=== PATIENT | male | born 1995 | race Caucasian/White ===

== ENCOUNTER 2018-04-08 18:41 | Emergency (ER) | payer OTHER ==
[2018-04-08] MEDS ORDERED: CYCLOBENZAPRINE HCL 10 MG TABLET PO ONE (19:39)
[2018-04-08] MEDS ORDERED: NAPROXEN 250 MG TABLET PO ONE (19:39)
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
[2018-04-08] MEDS ORDERED: ONDANSETRON 4 MG TAB.RAPDIS PO ONE (20:11)
[2018-04-08 21:08] VITALS: BP 137/80
== END 2018-04-08 21:06 | disposition home or self-care (01) ==
LOC: ER 18:41
DX: S39.92XA Unspecified injury of lower back, initial encounter (principal); R11.0 Nausea; V43.52XA Car driver injured in collision with other type car in traffic accident, initial encounter; Y92.488 Other paved roadways as the place of occurrence of the external cause; F17.200 Nicotine dependence, unspecified, uncomplicated; F12.10 Cannabis abuse, uncomplicated; Z98.890 Other specified postprocedural states
CPT/HCPCS: 99283; 72110; 72070; S0119

== ENCOUNTER 2019-09-21 14:28 | Emergency (ER) | payer OTHER ==
[2019-09-21 14:37] VITALS: BP 135/88
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
[2019-09-21 15:35] LABS: APPEARANCE,URINE CLEAR; BILIRUBIN,URINE NEGATIVE (NEGATIVE); COLOR,URINE COLORLESS; GLUCOSE, URINE NEGATIVE (NEGATIVE); KETONES,URINE NEGATIVE (NEGATIVE); LEUKOCYTE ESTERASE,URINE NEGATIVE (NEGATIVE); NITRITE,URINE NEGATIVE (NEGATIVE); PROTEIN,URINE NEGATIVE (NEGATIVE); URINE SPECIFIC GRAVITY 1.003; UROBILINOGEN,URINE NEGATIVE mg/dL (<2.0)
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
[2019-09-21 15:50] LABS: ALBUMIN 5.1 g/dL (3.5-5.0); ALKALINE PHOSPHATASE 54 U/L (38-126); ANION GAP 10 (5-19); ASPARTATE AMINO TRANSFERASE 22 U/L (17-59); BILIRUBIN,DIRECT 0.2 mg/dL (0.0-0.4); BILIRUBIN,TOTAL 0.6 mg/dL (0.2-1.3); BLOOD UREA NITROGEN 9 mg/dL (7-20); CALCIUM 9.6 mg/dL (8.4-10.2); CARBON DIOXIDE 28 mmol/L (22-30); CHLORIDE 103 mmol/L (98-107); GLUCOSE 100 mg/dL (75-110); POTASSIUM 4.2 mmol/L (3.6-5.0); TOTAL PROTEIN 7.9 g/dL (6.3-8.2)
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
[2019-09-21 16:01] LABS: ABSOLUTE BASOPHILS # (AUTO) 0.1 10^3/uL (0.0-0.2); ABSOLUTE EOSINOPHILS # (AUTO) 0.1 10^3/uL (0.0-0.6); ABSOLUTE LYMPHOCYTES (AUTO) 1.5 10^3/uL (0.5-4.7); ABSOLUTE MONOCYTES (AUTO) 0.4 10^3/uL (0.1-1.4); ABSOLUTE NEUT (AUTO) 4.3 10^3/uL (1.7-8.2); BASOPHILS % (AUTO) 0.9 % (0-2); HEMATOCRIT 44.7 % (37.9-51.0); HEMOGLOBIN 15.4 g/dL (13.5-17.0); LYMPHOCYTES % (AUTO) 24.1 % (13-45); MEAN CORPUSCULAR HEMOGLOBIN 30.2 pg (27.0-33.4); MEAN CORPUSCULAR HGB CONC 34.3 g/dL (32.0-36.0); MEAN CORPUSCULAR VOLUME 88 fl (80-97); MONOCYTES % (AUTO) 5.9 % (3-13); PLATELET COUNT 160 10^3/uL (150-450); RED BLOOD COUNT 5.08 10^6/uL (4.35-5.55); RED CELL DISTRIBUTION WIDTH 13.7 % (11.5-14.0); SEGMENTED NEUTROPHILS % (AUTO) 68.1 % (42-78); TOTAL CELLS COUNTED % (AUTO) 100 %; WHITE BLOOD COUNT 6.3 10^3/uL (4.0-10.5)
[2019-09-21] MEDS ORDERED: IBUPROFEN 800 MG TABLET PO ONE (16:02)
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
[2019-09-21] MEDS ORDERED: NICOTINE 7 MG/24 HR PATCH.TD24 TD ONE (18:16)
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
--- NOTE | 2019-09-21 18:55 | RADIOLOGY REPORT (SQ) ---
EXAM DESCRIPTION: U/S ABDOMEN LIMITED W/O DOP; U/S RETROPERITON (RENAL/AORTA) COMPLETED DATE/TIME: 09/21/2019 6:17 pm REASON FOR STUDY: pain, LUQ,Trauma; FLANK PAIN LEFT > RIGHT, COMPARISON: None. TECHNIQUE: Dynamic and static grayscale images acquired of the left upper quadrant, kidneys and blad lauro and recorded on PACS. Additional selected color Doppler and spectral images recorded. LIMITATIONS: None. FINDINGS: RIGHT KIDNEY: The right kidney measures 10.6 cm in length. The echotexture of the parenc hyma is normal. The corticomedullary differentiation is preserved. There is no hydronephrosis, calc ification or mass. LEFT KIDNEY: The left kidney measures 10.5 cm in length. The echotexture of the parenchyma is mi l. The corticomedullary differentiation is preserved. There is no hydronephrosis, calcification or mass. BLADDER: No masses. OTHER FINDINGS: The spleen measures 10.7 cm in length. There is no abnormality of the left upper butch drant. IMPRESSION: Normal appearance of the kidneys and urinary bladder. The spleen is normal in size. Th ere is no abnormality of the left upper quadrant. TECHNICAL DOCUMENTATION: JOB ID: [id number] [employer]- All Rights Reserved Reading location - IP/workstation name: [email or web address]
== END 2019-09-21 19:08 | disposition home or self-care (01) ==
LOC: ER 14:28
DX: R35.0 Frequency of micturition (principal); R10.9 Unspecified abdominal pain; M54.5 Low back pain; R07.89 Other chest pain; W17.89XA Other fall from one level to another, initial encounter; F17.210 Nicotine dependence, cigarettes, uncomplicated
CPT/HCPCS: 99284; 36415; 85025; 80053; 81001; 71046; 73030; 76770; 76705; 72125; 72131; J3490